=== PATIENT | male | born 1940 | race Caucasian/White ===

== ENCOUNTER 2018-07-17 10:27 | Emergency (ER) | payer MEDICARE, BC ==
[2018-07-17 11:31] VITALS: BP 138/78
--- NOTE | 2018-07-17 12:02 | UC ---
General HPI - HPI Summary HPI Summary: "asthmatic bronchitis". cough, sob, yellow sputum and wheezy. 3 days of illness. - History of Current Complaint Chief Complaint: UCRespiratory Stated Complaint: COUGH, CHEST CONGESTION Time Seen by Provider: 07/17/18 11:55 Hx Obtained From: Patient Onset/Duration: Gradual Onset Timing: Constant Pain Intensity: 0 Alleviating: partial with neb tx's Associated Signs & Symptoms: Negative: Chest Pain - Allergy/Home Medications Allergies/Adverse Reactions: Allergies Allergy/AdvReac Type Severity Reaction Status Date / Time No Known Allergies Allergy Verified 07/17/18 11:24 Home Medications: Home Medications Albuterol inh POWDER (NF) [Proair Respiclick] 108 mcg IN Q6HR PRN 07/17/18 [ History Confirmed 07/17/18] Atorvastatin* [Lipitor*] 40 mg PO DAILY 07/17/18 [History Confirmed 07/17/18] Beclomethasone 80 MCG MDI(NF) [Qvar 80 MCG MDI(NF)] 2 puff INH DAILY 07/17/18 [ History Confirmed 07/17/18] DULoxetine DR CAP* [Cymbalta CAP*] 20 mg PO DAILY 07/17/18 [History Confirmed ] buPROPion TAB* [Wellbutrin TAB*] 150 mg PO DAILY 07/17/18 [History Confirmed ] PMH/Surg Hx/FS Hx/Imm Hx Endocrine History: Dyslipidemia Cardiovascular History: Hypertension Respiratory History: COPD, Asthma, Bronchitis Psychological History: Anxiety - Surgical History Surgical History: Yes Surgery Procedure, Year, and Place: L and R HIP replacement, three heart surgs- MITRAL HEART VALVE 2014. HERNIA AGE 7. NEUROMA RIGHT FOOT. BILATERAL CATARACTS - Family History Known Family History: Positive: Cardiac Disease, Hypertension - Social History Occupation: Retired Alcohol Use: None Substance Use Type: None Smoking Status (MU): Never Smoked Tobacco - Immunization History Most Recent Influenza Vaccination: 2011 Most Recent Tetanus Shot: last 10 years Vaccination Up to Date: Yes Review of Systems Constitutional: Negative Skin: Negative Eyes: Negative ENT: Negative Respiratory: Shortness Of Breath, Cough Cardiovascular: Negative Gastrointestinal: Negative Genitourinary: Negative Motor: Negative Neurovascular: Negative Musculoskeletal: Negative Neurological: Negative Psychological: Negative Is Patient Immunocompromised?: No All Other Systems Reviewed And Are Negative: Yes Physical Exam Triage Information Reviewed: Yes Appearance: Well-Appearing Vital Signs: Initial Vital Signs Temp 98 F 07/17/18 11:23 Pulse 61 07/17/18 11:23 Resp 17 07/17/18 11:23 BP 138/78 07/17/18 11:23 Pulse Ox 98 07/17/18 11:23 Vital Signs Reviewed: Yes Eyes: Positive: Conjunctiva Clear ENT: Positive: Pharynx normal, TMs normal. Negative: Nasal congestion, Nasal drainage Neck: Positive: Supple, Nontender, No Lymphadenopathy Respiratory: Positive: Lungs clear, Decreased breath sounds, Other: - bronchospatic-congested cough Cardiovascular: Positive: RRR, No Murmur Abdomen Description: Positive: Nontender, No Organomegaly, Soft Bowel Sounds: Positive: Present Musculoskeletal: Positive: ROM Intact Neurological: Positive: Alert Psychological: Positive: Age Appropriate Behavior Skin Exam: Normal Course/Dx - Course Course Of Treatment: non toxic, not hypoxic, no concern for acs or pneumonia. - Differential Dx - Multi-Symptom Provider Diagnoses: ASTHMA FLARE. BRONCHITIS Discharge - Sign-Out/Discharge Documenting (check all that apply): Patient Departure All imaging exams completed and their final reports reviewed: No Studies - Discharge Plan Condition: Stable Disposition: HOME Prescriptions: DOXYcycline CAP(*) [DOXYcycline 100MG CAP(*)] 100 mg PO BID 10 Days #20 cap predniSONE TAB* [Deltasone 20 MG TAB*] 40 mg PO DAILY 5 Days #10 tab Patient Education Materials: Asthma (ED), Acute Bronchitis (ED) Referrals: Amy Arvizu MD [Primary Care Provider] - 5 Days Additional Instructions: USE RESCUE INHALER OR THE NEBULIZER EVERY 6 HOURS - Billing Disposition and Condition Condition: STABLE Disposition: Home
== END 2018-07-17 12:08 | disposition home or self-care (01) ==
LOC: UCCORT 10:27
DX: J45.909 Unspecified asthma, uncomplicated (principal); E78.5 Hyperlipidemia, unspecified; I10 Essential (primary) hypertension; F41.9 Anxiety disorder, unspecified
CPT/HCPCS: 99212; G0463